=== PATIENT | male | born 1960 | race Two or more races ===

== ENCOUNTER 2017-07-11 18:22 | Emergency (ER) | payer MEDICAID ==
[~2017-07-11] VITALS: Ht 165.1 cm; Wt 8.2 kg
[2017-07-11 20:20] VITALS: BP 119/68
[2017-07-11 23:20] VITALS: BP 128/74
[2017-07-12 01:20] VITALS: BP 131/83
[2017-07-12 03:41] VITALS: BP 122/71
[2017-07-12 05:05] VITALS: BP 129/76
[2017-07-12 05:10] VITALS: BP 129/76
--- NOTE | 2017-07-12 10:27 | Diagnostic Imaging Report ---
Indication: Altered mental status Technique: Continuous helical CT scanning of the head was performed without intravenous contrast material. Axial and coronal 5 mm sections were generated. Radiation dose was minimized using automated exposure control Dose: Total Dose Length Product - DLP [address] Dose Index - CTDIvol(s) 70.38 mGy. Comparison: none Findings: The ventricular system is normal in size and configuration. There is no shift of midline structures. No abnormal extra-axial fluid collections are noted. There is no evidence of intracerebral bleeding. No other abnormal high or low density areas are noted within the brain. The calvarium is intact. The sinuses are demonstrate minimal mucoperiosteal thickening. Included orbits are unremarkable Impression: Normal CT scan of the head without contrast material. Incidental finding minimal sinus disease This agrees with the preliminary interpretation provided overnight by [facility]. The CT scanner at [facility] is accredited by the [employer] and the scans are performed using protocols designed to limit radiation exposure to as low as reasonably achievable to attain images of sufficient resolution adequate for diagnostic evaluation.
--- NOTE | 2017-07-12 14:12 | Emergency Room Report ---
History of Present Illness General Chief Complaint: Alcohol Intoxication Source: Patient Present Illness HPI 57-year-old male presents ED status post EtOH intoxication. Per EMS patient was found on sidewalk tonight. Bystander called 911. Upon arrival patient is protecting airway but is very slow to arouse. Unclear whether patient sustained any trauma. Unable to provide any additional history at this time. No other aggravating or leading factors. No other associated symptoms Allergies: Coded Allergies: UNABLE TO ASSESS (Unverified , 07/11/17) Patient History Past Medical History: none Past Surgical History: none Pertinent Family History: none Social History: Reports: alcohol use, Denies: smoking, drug use Immunizations: UTD Reviewed Nursing Documentation: PMH: Agreed, PSxH: Agreed Review of Systems All Other Systems: limited Physical Exam Vital Signs Date Time Temp Pulse Resp B/P (MAP) Pulse Ox O2 Delivery O2 Flow Rate FiO2 07/11/17 18:03 98.1 66 16 107/59 98 Room Air Sp02 EP Interpretation: reviewed, normal General Appearance: no apparent distress, lethargic Head: normocephalic, atraumatic ENT: normal ENT inspection Neck: normal inspection Respiratory: chest non-tender, lungs clear, normal breath sounds, speaking full sentences Cardiovascular #1: regular rate, rhythm, no edema Cardiovascular #2: 2+ carotid (R), 2+ carotid (L), 2+ radial (R), 2+ radial (L) , 2+ dorsalis pedis (R), 2+ dorsalis pedis (L) Gastrointestinal: normal inspection Rectal: deferred Genitourinary: no CVA tenderness Musculoskeletal: normal inspection Neurologic: other - lethargic Psychiatric: other - Lethargic Skin: normal inspection Lymphatic: normal inspection Medical Decision Making Diagnostic Impression: Primary Impression: Acute alcoholic intoxication Qualified Codes: F10.929 - Alcohol use, unspecified with intoxication, unspecified ER Course Hospital Course 57-year-old male presents to ED status post EtOH intoxication. Found down on sidewalk Clinical course Patient placed on stretcher. After initial history and physical I ordered CT head CT head unremarkable Patient allowed to sleep. My assessment shows no evidence of SI/HI requiring psychiatric evaluation. Patient allowed to rest in now awake alert oriented x3. ambulating without difficulty. Patient is safe for discharge Diagnosis - ETOH intoxication stable and discharged to home. Followup with PMD. Return to ED if symptoms recur or worsen CT/MRI/US Diagnostic Results CT/MRI/US Diagnostic Results : Imaging Test Ordered: CT head Impression no acute process Last Vital Signs Date Time Temp Pulse Resp B/P (MAP) Pulse Ox O2 Delivery O2 Flow Rate FiO2 07/12/17 05:10 98.3 83 18 129/76 98 Room Air Status: improved Disposition: HOME, SELF-CARE Condition: Improved Referrals: NOT CHOSEN IPA/,REFERRING (PCP) Patient Instructions: Alcohol Intoxication, [id number] HARMEET HOUGH M.D. Jul 12, 2017 14:12
== END 2017-07-12 05:10 | disposition home or self-care (01) ==
LOC: EDBD 18:22 → EMR 19:02
DX: F10.129 Alcohol abuse with intoxication, unspecified (principal); R41.82 Altered mental status, unspecified
CPT/HCPCS: 70450; 99284